=== PATIENT | female | born 1955 ===

== ENCOUNTER 2025-05-23 06:17 | Day surgery (SDC) | payer MEDICARE, SELFPAY | END 2025-05-23 11:29 | disposition home or self-care (01) | LOC: GI 06:17 | PROVIDERS: ATTENDING PHYSICIAN Surgery | DX: Z12.11 Encounter for screening for malignant neoplasm of colon (principal); Z83.719 Family history of colon polyps, unspecified; Z98.0 Intestinal bypass and anastomosis status | CPT/HCPCS: G0105 ==